=== PATIENT | female | born 1975 | race African-American/Black ===

== ENCOUNTER → 2016-11-15 | Outpatient (CLI) | payer OTHER | LOC: CAT 11-07 18:36 | DX: Z13.6 Encounter for screening for cardiovascular disorders (principal) ==

== ENCOUNTER 2018-01-01 06:37 | Emergency (ER) | payer BC, OTHER ==
[~2018-01-01] VITALS: Ht 172.7 cm; Wt 96.2 kg
[2018-01-01] MEDS ORDERED: TOBRAMYCIN SULFA5 M1 OPHTHALMIC (07:04)
[2018-01-01 07:40] VITALS: BP 136/95
== END 2018-01-01 07:40 | disposition home or self-care (01) ==
LOC: ER 06:37
DX: S05.02XA Injury of conjunctiva and corneal abrasion without foreign body, left eye, initial encounter (principal); J45.909 Unspecified asthma, uncomplicated; X58.XXXA Exposure to other specified factors, initial encounter; Y93.89 Activity, other specified; Y92.89 Other specified places as the place of occurrence of the external cause; Y99.8 Other external cause status

== ENCOUNTER → 2019-10-15 | Outpatient (CLI) | payer BC, OTHER ==
[~2019-10-15] MED LIST: TOBRAMYCIN SULFA5 M1 OPHTHALMIC
== END ==
LOC: ULTRA 10:41
DX: M79.604 Pain in right leg (principal); M79.89 Other specified soft tissue disorders

== ENCOUNTER 2020-01-23 06:09 | Emergency (ER) | payer BC, OTHER ==
[~2020-01-23] VITALS: Ht 170.2 cm; Wt 90.7 kg
[2020-01-23 06:14] VITALS: BP 128/86
[2020-01-23] MEDS ORDERED: PROAIR HFA8.5 GM INH (06:17)
== END 2020-01-23 06:53 | disposition home or self-care (01) ==
LOC: ER 06:09
DX: H10.9 Unspecified conjunctivitis (principal)

== ENCOUNTER 2021-05-16 14:18 | Emergency (ER) | payer BC, OTHER ==
[~2021-05-16] VITALS: Ht 170.2 cm; Wt 98.0 kg
[~2021-05-16 14:18] MED LIST changes: +PROAIR HFA8.5 GM INH
[2021-05-16 15:17] VITALS: BP 130/102
== END 2021-05-16 15:17 | disposition home or self-care (01) ==
LOC: ER 14:18
DX: S60.111A Contusion of right thumb with damage to nail, initial encounter (principal); J45.909 Unspecified asthma, uncomplicated; Z91.09 Other allergy status, other than to drugs and biological substances; Z79.51 Long term (current) use of inhaled steroids; Z88.5 Allergy status to narcotic agent; W23.0XXA Caught, crushed, jammed, or pinched between moving objects, initial encounter; Y93.89 Activity, other specified; Y92.89 Other specified places as the place of occurrence of the external cause; Y99.8 Other external cause status